=== PATIENT | male | born 1950 | race Caucasian/White ===

== ENCOUNTER 2022-04-10 06:26 | Inpatient (IN) ==
--- NOTE | 2022-04-08 11:37 | XRay Report ---
INDICATION: PRE-SURGERY TECHNIQUE: PA and lateral upright chest x-ray COMPARISON: Previous chest x-ray dated 01/19/2013 FINDINGS: Lungs: Lungs are negative. No focal pulmonary parenchymal infiltrate or mass Heart, vascular: No significant cardiomegaly. Pulmonary vascularity is normal. No pulmonary edema or pulmonary congestion Mediastinum, mima: No mediastinal widening. No hilar mass Pleura:No pleural fluid. No pleural-based mass or calcification Thoracic spine, ribs: No thoracic compression fracture. Ribs are negative. No fracture. No lytic lesion IMPRESSION: 1. Negative PA and lateral chest x-ray 2. No significant interval change Interpreted and Authenticated by: Lauro Davis 04/08/22
[2022-04-08 15:01] LABS: Basophils # (Auto) 0.08 K/mcL (0.00-0.30); Basophils % (Auto) 1.2 % (0.0-2.0); Eosinophils # (Auto) 0.32 K/mcL (0.00-0.70); Eosinophils % (Auto) 4.9 % (0.0-7.0); Hematocrit 40.3 % (40.1-51.0); Hemoglobin 13.3 g/dL (13.7-17.5); Lymphocytes # (Auto) 0.97 K/mcL (1.50-4.80); Lymphocytes % (Auto) 14.8 % (15.5-49.0); Mean Cell Volume 90.6 fL (80.0-100.0); Mean Platelet Volume 10.7 fL (7.4-10.4); Monocytes # (Auto) 0.42 K/mcL (0.10-0.90); Monocytes % (Auto) 6.4 % (1.0-12.0); Neutrophils % (Auto) 72.2 % (38.0-78.0); Platelet Count 194 K/mcL (140-440); RBC 4.45 M/mcL (4.63-6.08); Red Cell Distribution Width 12.6 % (11.5-14.5); WBC 6.5 K/mcL (4.5-11.0)
[2022-04-08 15:06] LABS: Partial Thromboplastin Time 29.7 sec (20.0-37.0); Prothrombin Time 13.6 sec (11.9-14.5)
[2022-04-08 15:34] LABS: ALT/SGPT 12 U/L (<40); AST/SGOT 16 U/L (<40); Albumin/Globulin Ratio 2.1 (1.0-2.3); Alkaline Phosphatase 97 U/L (39-117); Bilirubin,Total 0.4 mg/dL (0.1-1.0); Blood Urea Nitrogen 11 mg/dL (8-23); Calcium 8.8 mg/dL (8.6-10.4); Carbon Dioxide 27 mmol/L (22-30); Chloride 103 mmol/L (96-108); Globulin 1.9 gm/dL (2.2-3.7); Glomerular Filtration Rate 85; Glucose 84 mg/dL (70-105)
--- NOTE | 2022-04-09 13:31 | EKG ---
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
[~2022-04-10 06:26] MED LIST: CEFEPIME 2 GM VIAL IV SCH; IPRATROPIUM/ALBUTEROL 3 ML AMPUL.NEB NEB PRN; SCOPOLAMINE 1 PATCH PATCH TOPICAL PRN; metroNIDAZOLE 500 MG/100 ML BAG IV SCH
[2022-04-10] MEDS ORDERED: GLYCOPYRROLATE 0.2 MG/ML VIAL IV ONE (09:30)
[2022-04-10] MEDS ORDERED: MAGNESIUM SULFATE 2 GM/50 ML BAG IV ONE (09:30)
[2022-04-10] MEDS ORDERED: LIDOCAINE HCL/PF 100 MG/5 ML SYRINGE IV ONE (09:30)
[2022-04-10] MEDS ORDERED: HYDROmorphone 1 MG/ML SYRINGE ONE (09:30)
[2022-04-10] MEDS ORDERED: DEXAMETHASONE 10 MG/ML VIAL ONE (09:30)
[2022-04-10] MEDS ORDERED: ONDANSETRON 4 MG/2 ML VIAL ONE (09:30)
[2022-04-10] MEDS ORDERED: ePHEDrine 50 MG/5 ML SYRINGE (ANEST) IV ONE (09:30)
[2022-04-10] MEDS ORDERED: ROCURONIUM 10 MG/ML ML IV ONE (09:30)
[2022-04-10] MEDS ORDERED: fentaNYL 100 MCG/2 ML VIAL IV ONE (09:30)
[2022-04-10] MEDS ORDERED: PROPOFOL 200 MG/20 ML VIAL IV ONE (09:30)
[2022-04-10] MEDS ORDERED: KETAMINE 50 MG/ML Syringe (ANEST) IV ONE (09:30)
[2022-04-10] MEDS ORDERED: SUGAMMADEX SODIUM 200 MG/2 ML VIAL IV ONE (09:30)
[2022-04-10] MEDS ORDERED: diphenhydrAMINE 50 MG/ML VIAL IV PRN (11:18)
[2022-04-10] MEDS ORDERED: IPRATROPIUM/ALBUTEROL 3 ML AMPUL.NEB NEB PRN (11:18)
[2022-04-10] MEDS ORDERED: MEPERIDINE 25 MG/ML VIAL IV PRN (11:18)
[2022-04-10] MEDS ORDERED: HYDROmorphone 0.5 MG/0.5 ML SYRINGE IV PRN (11:18)
[2022-04-10] MEDS ORDERED: METHOCARBAMOL 1,000 MG/10 ML VIAL IV PRN (11:18)
[2022-04-10] MEDS ORDERED: NALOXONE HCL 0.4 MG/ML VIAL IV PRN (11:18)
[2022-04-10] MEDS ORDERED: ACETAMINOPHEN 1,000 MG/100 ML BAG IV ONE (11:18)
[2022-04-10] MEDS ORDERED: PROMETHAZINE 25 MG/ML VIAL IV PRN ×2 (11:18→14:30)
[2022-04-10] MEDS ORDERED: ONDANSETRON 4 MG/2 ML VIAL IV PRN ×2 (11:18→11:56)
[2022-04-10] MEDS ORDERED: LACTATED RINGERS 250 ML IV PRN (11:18)
[2022-04-10] MEDS ORDERED: LACTATED RINGERS 1,000 ML IV SCH (11:30)
--- NOTE | 2022-04-10 11:40 | Brief Operative Note ---
Brief Operative Note Date of procedure: 04/10/22 Pre-op diagnosis: ascending colon cancer Post-op diagnosis: other (ascending colon cancer) Procedure: right colectomy Grafts/Implants: No Anesthesia: GETA Findings: thickened scar if proximal ascending colon Complications: none Surgeon: Song Bullock Estimated blood loss (cc): 30 Specimens Removed/Pathology: other (right colon) Condition: stable Disposition: PACU
[2022-04-10] MEDS: fentaNYL 100 MCG/2 ML VIAL IV PRN ×4 (12:16→12:30)
[2022-04-10] MEDS: HYDROmorphone 1 MG/ML SYRINGE IV PRN ×3 (13:25→20:23)
[2022-04-10] MEDS: 0.9 % SODIUM CHLORIDE 1,000 ML IV SCH ×2 (13:26→20:27)
[2022-04-10] MEDS: 0.9 % SODIUM CHLORIDE 10 ML SYRINGE IV SCH ×2 (13:26→20:24)
[2022-04-10] MEDS ORDERED: BENZOCAINE 1 SPRAY BOTTLE TOPICAL PRN (15:54)
[2022-04-10] MEDS: CEFEPIME 1 GM VIAL IV SCH (17:44)
[2022-04-11] MEDS: HYDROmorphone 1 MG/ML SYRINGE IV PRN ×5 (01:16→20:22)
[2022-04-11] MEDS: CEFEPIME 1 GM VIAL IV SCH ×3 (01:16→16:47)
[2022-04-11] MEDS: ACETAMINOPHEN 1,000 MG/100 ML BAG IV SCH ×4 (01:54→23:38)
[2022-04-11] MEDS: 0.9 % SODIUM CHLORIDE 1,000 ML IV SCH ×3 (03:34→20:25)
[2022-04-11] MEDS: 0.9 % SODIUM CHLORIDE 10 ML SYRINGE IV SCH ×3 (05:29→20:21)
[2022-04-11 06:44] LABS: Basophils # (Auto) 0.01 K/mcL (0.00-0.30); Basophils % (Auto) 0.1 % (0.0-2.0); Eosinophils # (Auto) 0 K/mcL (0.00-0.70); Eosinophils % (Auto) 0 % (0.0-7.0); Hematocrit 36.3 % (40.1-51.0); Lymphocytes # (Auto) 0.59 K/mcL (1.50-4.80); Lymphocytes % (Auto) 6.5 % (15.5-49.0); Mean Cell Volume 90.1 fL (80.0-100.0); Mean Corpuscular HGB Conc 33.1 g/dL (31.0-36.0); Monocytes # (Auto) 0.84 K/mcL (0.10-0.90); Monocytes % (Auto) 9.3 % (1.0-12.0); Neutrophils % (Auto) 83.7 % (38.0-78.0); Platelet Count 174 K/mcL (140-440); RBC 4.03 M/mcL (4.63-6.08); Red Cell Distribution Width 12.6 % (11.5-14.5)
[2022-04-11 07:14] LABS: ALT/SGPT 15 U/L (<40); AST/SGOT 16 U/L (<40); Albumin 3.2 gm/dL (3.2-5.2); Albumin/Globulin Ratio 1.8 (1.0-2.3); Alkaline Phosphatase 75 U/L (39-117); Bilirubin,Direct 0.2 mg/dL (<0.3); Bilirubin,Total 0.8 mg/dL (0.1-1.0); Blood Urea Nitrogen 16 mg/dL (8-23); Calcium 7.6 mg/dL (8.6-10.4); Carbon Dioxide 25 mmol/L (22-30); Chloride 106 mmol/L (96-108); Globulin 1.8 gm/dL (2.2-3.7); Glomerular Filtration Rate 75; Glucose 105 mg/dL (70-105); Lactate Dehydrogenase 161 U/L (135-225); Phosphorous 2.9 mg/dL (2.5-4.5); Triglycerides 50 mg/dL (<150); Uric Acid 4.9 mg/dL (2.5-8.0)
--- NOTE | 2022-04-11 17:47 | General Surgery Progress Note ---
SUBJECTIVE Subjective Patient information: Note initiated : 04/11/22 at 5:44 pm Service Date, if different from initiated Date: [] Patient: Ubaldo Oliveira 71 y/o M admitted on 04/10/22 for Right Colectomy. Chief Complaint: [] Interval history: Patient has done well on the first postoperative day. His pain is controlled. He denies nausea. White blood count 9, hemoglobin 12, hematocrit 36.3. CHEM panel normal Constitutional Vitals: Vital Signs Temp Pulse Resp BP Pulse Ox O2 Del Method O2 Flow Rate 97.6 F 67 18 183/97 90 2 04/11/22 15:54 04/11/22 15:54 04/11/22 15:54 04/11/22 15:54 04/11/22 15:54 04/11/22 15:54 04/11/22 08:00 Period Temp Pulse Resp BP Sys/Cueva Pulse Ox O2 Del Method O2 Flow Rate Last 24 Hr 97.6 F-100.2 F 61-79 16-20 122-183/78-97 90-94 Nasal Cannula- Room Air 2-2 Intake and Output 04/11/22 04/11/22 04/11/22 05:59 13:59 21:59 Intake Total 1040 1100 250 Output Total 1500 650 Balance -460 1100 -400 Weight 222 lb 1.6 oz Patient Weight 04/12/22 05:59 Weight 222 lb 1.6 oz Intake & Output: Intake & Output 04/11/22 04/11/22 04/11/22 05:59 13:59 21:59 Intake Total 1040 1100 250 Output Total 1500 650 Balance -460 1100 -400 Weight 222 lb 1.6 oz Intake: IV 990 1100 100 Sodium Chloride 0.9% 1,000 ml @ 890 1000 125 mls/hr IV .Q8H [facility] Rx#: [id number] Oral 50 150 Tube Feeding 0 Output: Gastric Drainage 400 650 Right Nare NG/OG 400 650 Urine Catheter Amount 1100 Other: Meal Popsicle Percent of Meal Consumed 100% Feeding Ability Independent Urine Appearance Clear Uretheral (Stubbs) Clear Urine Color Yellow Uretheral (Stubbs) Bright Yellow Eye Eye exam: Present EOMI and PERRL ENT ENT exam: Present mucous membranes moist and normal oropharynx Neck Neck exam: Present full ROM and normal inspection; Absent tenderness Respiratory Respiratory exam: Present normal respiratory exam and CTAB; Absent rales or rhonchi Cardiovascular Cardiovascular exam: Present normal rate and rhythm, RRR, +S1 and +S2; Absent JVD GI/Abdominal GI/Abdominal exam: Present normal bowel sounds and soft; Absent distended Extremities Exam Extremities exam: Present full ROM and neurovascular intact Neurological Exam Neurological exam: Present alert and oriented X3; Absent motor sensory deficit Psychiatric Psychiatric exam: Present normal affect and normal mood A/P Assessment and plan (1) Malignant neoplasm of right colon: Status: Acute Plan Patient has normal postoperative course Will continue present movement Time Spent With Patient Time: Total time spent is greater than 50% in coordination of care (as documented) at patient's floor/unit and/or counseling patient:
[2022-04-11] MEDS: hydrALAZINE 20 MG/ML VIAL IV PRN (20:21)
[2022-04-11] MEDS ORDERED: hydrALAZINE 20 MG/ML VIAL ONE (20:29)
[2022-04-12] MEDS: CEFEPIME 1 GM VIAL IV SCH ×3 (00:29→17:24)
[2022-04-12] MEDS: hydrALAZINE 20 MG/ML VIAL IV PRN ×2 (02:30→17:22)
[2022-04-12] MEDS: HYDROmorphone 1 MG/ML SYRINGE IV PRN ×2 (03:21→20:27)
[2022-04-12] MEDS: 0.9 % SODIUM CHLORIDE 1,000 ML IV SCH ×3 (03:21→20:32)
[2022-04-12] MEDS: ACETAMINOPHEN 1,000 MG/100 ML BAG IV SCH ×3 (05:27→17:44)
[2022-04-12] MEDS: 0.9 % SODIUM CHLORIDE 10 ML SYRINGE IV SCH ×2 (05:29→14:36)
[2022-04-12 06:30] LABS: Basophils # (Auto) 0.03 K/mcL (0.00-0.30); Basophils % (Auto) 0.4 % (0.0-2.0); Eosinophils # (Auto) 0.09 K/mcL (0.00-0.70); Eosinophils % (Auto) 1.1 % (0.0-7.0); Hematocrit 36.9 % (40.1-51.0); Hemoglobin 12.3 g/dL (13.7-17.5); Lymphocytes # (Auto) 0.37 K/mcL (1.50-4.80); Lymphocytes % (Auto) 4.7 % (15.5-49.0); Mean Cell Volume 89.8 fL (80.0-100.0); Mean Corpuscular HGB Conc 33.3 g/dL (31.0-36.0); Mean Platelet Volume 10.3 fL (7.4-10.4); Monocytes # (Auto) 0.55 K/mcL (0.10-0.90); Neutrophils % (Auto) 86.7 % (38.0-78.0); Platelet Count 151 K/mcL (140-440); RBC 4.11 M/mcL (4.63-6.08); Red Cell Distribution Width 12.4 % (11.5-14.5); WBC 7.9 K/mcL (4.5-11.0)
[2022-04-12 06:53] LABS: ALT/SGPT 13 U/L (<40); AST/SGOT 15 U/L (<40); Albumin 3.3 gm/dL (3.2-5.2); Albumin/Globulin Ratio 1.5 (1.0-2.3); Alkaline Phosphatase 88 U/L (39-117); Bilirubin,Direct 0.2 mg/dL (<0.3); Bilirubin,Total 0.9 mg/dL (0.1-1.0); Blood Urea Nitrogen 10 mg/dL (8-23); Calcium 7.8 mg/dL (8.6-10.4); Carbon Dioxide 25 mmol/L (22-30); Chloride 105 mmol/L (96-108); Globulin 2.2 gm/dL (2.2-3.7); Glomerular Filtration Rate 94; Glucose 94 mg/dL (70-105); Lactate Dehydrogenase 186 U/L (135-225); Phosphorous 1.4 mg/dL (2.5-4.5); Triglycerides 70 mg/dL (<150); Uric Acid 4.3 mg/dL (2.5-8.0)
--- NOTE | 2022-04-12 15:42 | General Surgery Progress Note ---
SUBJECTIVE Subjective Patient information: Note initiated : 04/12/22 at 3:37 pm Service Date, if different from initiated Date: [] Patient: Ubaldo Oliveira 71 y/o M admitted on 04/10/22 for Right Colectomy. Chief Complaint: [] Principal diagnosis: Right colectomy Interval history: Patient is doing well. He has had some flatus but has not had a bowel movement. He denies nausea. Urine output is excellent. Discussed with him the plan to clamp his nasogastric tube and place him on clear liquids. Stubbs catheter is ready for being discontinued. Constitutional Vitals: Vital Signs Temp Pulse Resp BP Pulse Ox O2 Del Method O2 Flow Rate 98.1 F 80 18 162/106 94 2 04/12/22 11:42 04/12/22 11:42 04/12/22 11:42 04/12/22 11:42 04/12/22 11:42 04/12/22 11:42 04/11/22 08:00 Period Temp Pulse Resp BP Sys/Cueva Pulse Ox O2 Del Method O2 Flow Rate Last 24 Hr 97.6 F-98.7 F 67-82 16-20 155-183/85-106 90-95 Room Air-Room Air Intake and Output 04/12/22 04/12/22 04/12/22 05:59 13:59 21:59 Intake Total 1067 1200 Output Total 2400 Balance -1333 1200 Intake & Output: Intake & Output 04/12/22 04/12/22 04/12/22 05:59 13:59 21:59 Intake Total 1067 1200 Output Total 2400 Balance -1333 1200 Intake: IV 967 1200 Sodium Chloride 0.9% 1,000 ml @ 867 1000 125 mls/hr IV .Q8H [facility] Rx#: [id number] Oral 100 Tube Feeding 0 Output: Gastric Drainage 275 Right Nare NG/OG 275 Urine Catheter Amount 2125 Other: Urine Appearance Clear Uretheral (Stubbs) Clear Urine Color Light Melina Uretheral (Stubbs) Yellow ENT ENT exam: Present mucous membranes moist and normal oropharynx Neck Neck exam: Present full ROM; Absent tenderness Respiratory Respiratory exam: Present normal respiratory exam; Absent CTAB, rales or respiratory distress Cardiovascular Cardiovascular exam: Present normal rate and rhythm, +S1 and +S2; Absent RRR GI/Abdominal GI/Abdominal exam: Present normal bowel sounds, distended (Mild distention) and tenderness (Minimal tenderness) Extremities Exam Extremities exam: Present full ROM, normal inspection and neurovascular intact; Absent tenderness Neurological Exam Neurological exam: Present alert, oriented X3 and reflexes normal; Absent altered or motor sensory deficit Psychiatric Psychiatric exam: Present normal affect and normal mood A/P Assessment and plan (1) Malignant neoplasm of right colon: Status: Acute (2) Chronic post-traumatic stress disorder: Status: Chronic Plan Patient is doing well. He has some flatus but has not had nausea or bowel movement. His pain is well controlled. He complains of anxiety but he is off of his antianxiety medication. Nasogastric tube is clamped. Time Spent With Patient Time: Total time spent is greater than 50% in coordination of care (as documented) at patient's floor/unit and/or counseling patient:
[2022-04-12] MEDS: ALPRAZolam 0.5 MG TABLET PO PRN (17:35)
[2022-04-13] MEDS: 0.9 % SODIUM CHLORIDE 10 ML SYRINGE IV SCH ×4 (00:24→23:57)
[2022-04-13] MEDS: ACETAMINOPHEN 1,000 MG/100 ML BAG IV SCH ×5 (00:29→23:57)
[2022-04-13] MEDS: CEFEPIME 1 GM VIAL IV SCH ×4 (00:29→23:57)
[2022-04-13] MEDS: 0.9 % SODIUM CHLORIDE 1,000 ML IV SCH ×3 (00:33→11:46)
[2022-04-13] MEDS: hydrALAZINE 20 MG/ML VIAL IV PRN ×2 (05:25→17:57)
[2022-04-13 06:48] LABS: Basophils # (Auto) 0.04 K/mcL (0.00-0.30); Basophils % (Auto) 0.7 % (0.0-2.0); Eosinophils # (Auto) 0.33 K/mcL (0.00-0.70); Eosinophils % (Auto) 5.5 % (0.0-7.0); Hematocrit 34.7 % (40.1-51.0); Hemoglobin 12.5 g/dL (13.7-17.5); Lymphocytes # (Auto) 0.45 K/mcL (1.50-4.80); Lymphocytes % (Auto) 7.5 % (15.5-49.0); Mean Cell Volume 89.2 fL (80.0-100.0); Mean Platelet Volume 10.3 fL (7.4-10.4); Monocytes # (Auto) 0.45 K/mcL (0.10-0.90); Monocytes % (Auto) 7.5 % (1.0-12.0); Neutrophils % (Auto) 78.5 % (38.0-78.0); Platelet Count 142 K/mcL (140-440); RBC 3.89 M/mcL (4.63-6.08); Red Cell Distribution Width 12.2 % (11.5-14.5)
[2022-04-13 07:23] LABS: ALT/SGPT 11 U/L (<40); AST/SGOT 13 U/L (<40); Albumin/Globulin Ratio 1.3 (1.0-2.3); Alkaline Phosphatase 69 U/L (39-117); Bilirubin,Direct 0.2 mg/dL (<0.3); Bilirubin,Total 0.8 mg/dL (0.1-1.0); Blood Urea Nitrogen 7 mg/dL (8-23); Calcium 8.2 mg/dL (8.6-10.4); Carbon Dioxide 22 mmol/L (22-30); Chloride 107 mmol/L (96-108); Globulin 2.3 gm/dL (2.2-3.7); Glomerular Filtration Rate 100; Glucose 86 mg/dL (70-105); Lactate Dehydrogenase 173 U/L (135-225); Phosphorous 1.8 mg/dL (2.5-4.5); Triglycerides 72 mg/dL (<150)
[2022-04-13] MEDS: HYDROmorphone 1 MG/ML SYRINGE IV PRN (13:04)
--- NOTE | 2022-04-13 14:59 | General Surgery Progress Note ---
SUBJECTIVE Subjective Patient information: Note initiated : 04/13/22 at 2:59 pm Service Date, if different from initiated Date: [] Patient: Ubaldo Oliveira 71 y/o M admitted on 04/10/22 for Right Colectomy. Chief Complaint: [] Principal diagnosis: Right colectomy Interval history: Patient continues to improve. He has flatus but has not had a bowel movement. He is tolerating his diet without difficulty. He denies nausea or vomiting. CBC and BMP are normal. Constitutional Vitals: Vital Signs Temp Pulse Resp BP Pulse Ox O2 Del Method O2 Flow Rate 98.5 F 100 H 18 147/95 95 2 04/13/22 12:00 04/13/22 12:00 04/13/22 12:00 04/13/22 12:00 04/13/22 12:00 04/13/22 12:00 04/11/22 08:00 Period Temp Pulse Resp BP Sys/Cueva Pulse Ox O2 Del Method O2 Flow Rate Last 24 Hr 98.5 F-100.0 F 69-100 16-18 147-185/95-106 94-98 Room Air-Room Air Intake and Output 04/13/22 04/13/22 04/13/22 05:59 13:59 21:59 Intake Total 200 1100 Output Total 600 Balance -400 1100 Intake & Output: Intake & Output 04/13/22 04/13/22 04/13/22 05:59 13:59 21:59 Intake Total 200 1100 Output Total 600 Balance -400 1100 Intake: IV 200 1100 Sodium Chloride 0.9% 1,000 ml @ 1000 125 mls/hr IV .Q8H [facility] Rx#: [id number] Tube Feeding 0 Output: Void Amount 600 Other: # Voids 1 Eye Eye exam: Present EOMI and PERRL ENT ENT exam: Present mucous membranes moist, normal exam and normal oropharynx Neck Neck exam: Present full ROM and normal inspection; Absent tenderness Respiratory Respiratory exam: Present normal respiratory exam and CTAB; Absent rales, rhonchi or wheezes Cardiovascular Cardiovascular exam: Present normal rate and rhythm, RRR, +S1 and +S2; Absent JVD GI/Abdominal GI/Abdominal exam: Present normal bowel sounds and soft; Absent distended Extremities Exam Extremities exam: Present full ROM, normal inspection and neurovascular intact; Absent pedal edema Neurological Exam Neurological exam: Present alert, oriented X3 and reflexes normal Psychiatric Psychiatric exam: Present anxious, normal affect and normal mood A/P Assessment and plan (1) Malignant neoplasm of right colon: Status: Acute (2) Chronic post-traumatic stress disorder: Status: Chronic (3) Neoplasm of meninges: Status: Chronic (4) GERD (gastroesophageal reflux disease): Status: Chronic Plan Patient is doing well. We will increase activity and will advance diet as tolerated Time Spent With Patient Time: Total time spent is greater than 50% in coordination of care (as documented) at patient's floor/unit and/or counseling patient:
[2022-04-14] MEDS: hydrALAZINE 20 MG/ML VIAL IV PRN ×2 (00:17→08:02)
[2022-04-14] MEDS: ALPRAZolam 0.5 MG TABLET PO PRN (00:17)
[2022-04-14] MEDS: 0.9 % SODIUM CHLORIDE 10 ML SYRINGE IV SCH ×2 (05:33→13:22)
[2022-04-14] MEDS: ACETAMINOPHEN 1,000 MG/100 ML BAG IV SCH ×3 (05:33→17:00)
[2022-04-14 06:18] LABS: Basophils # (Auto) 0.07 K/mcL (0.00-0.30); Basophils % (Auto) 1.1 % (0.0-2.0); Eosinophils # (Auto) 0.54 K/mcL (0.00-0.70); Eosinophils % (Auto) 8.7 % (0.0-7.0); Hematocrit 36.6 % (40.1-51.0); Hemoglobin 12.6 g/dL (13.7-17.5); Lymphocytes # (Auto) 0.66 K/mcL (1.50-4.80); Lymphocytes % (Auto) 10.7 % (15.5-49.0); Mean Cell Volume 88.2 fL (80.0-100.0); Mean Corpuscular HGB Conc 34.4 g/dL (31.0-36.0); Mean Platelet Volume 10.1 fL (7.4-10.4); Monocytes % (Auto) 8.1 % (1.0-12.0); Neutrophils % (Auto) 71.1 % (38.0-78.0); Platelet Count 195 K/mcL (140-440); RBC 4.15 M/mcL (4.63-6.08); Red Cell Distribution Width 12.3 % (11.5-14.5); WBC 6.2 K/mcL (4.5-11.0)
[2022-04-14 06:42] LABS: ALT/SGPT 13 U/L (<40); AST/SGOT 14 U/L (<40); Albumin 3.3 gm/dL (3.2-5.2); Albumin/Globulin Ratio 1.4 (1.0-2.3); Alkaline Phosphatase 76 U/L (39-117); Bilirubin,Direct < 0.2 mg/dL (0-0.3); Bilirubin,Total 0.7 mg/dL (0.1-1.0); Blood Urea Nitrogen 6 mg/dL (8-23); Calcium 8.5 mg/dL (8.6-10.4); Carbon Dioxide 22 mmol/L (22-30); Chloride 107 mmol/L (96-108); Globulin 2.3 gm/dL (2.2-3.7); Glomerular Filtration Rate 94; Glucose 104 mg/dL (70-105); Lactate Dehydrogenase 173 U/L (135-225); Phosphorous 2.8 mg/dL (2.5-4.5); Triglycerides 88 mg/dL (<150); Uric Acid 3.4 mg/dL (2.5-8.0)
[2022-04-14] MEDS: CEFEPIME 1 GM VIAL IV SCH ×2 (08:06→16:56)
[2022-04-14] MEDS: LOSARTAN 50 MG TABLET PO SCH (14:00)
[2022-04-14] MEDS: POLYETHYLENE GLYCOL 3350 17 GM PACKET PO SCH ×2 (14:01→21:05)
[2022-04-14] MEDS: HYDROCHLOROTHIAZIDE 25 MG TABLET PO SCH (14:01)
--- NOTE | 2022-04-14 14:43 | General Surgery Progress Note ---
SUBJECTIVE Subjective Patient information: Note initiated : 04/14/22 at 2:38 pm Service Date, if different from initiated Date: [] Patient: Ubaldo Oliveira 71 y/o M admitted on 04/10/22 for Right Colectomy. Chief Complaint: [] Principal diagnosis: Right colectomy Interval history: Patient continues to do well. He is afebrile. He has had flatus and had a small bowel movement earlier today. He does have some abdominal distention. White blood count 6.2, hemoglobin 12.6, hematocrit 36.6, potassium 3.2, BUN 6, creatinine 0.7. Constitutional Vitals: Vital Signs Temp Pulse Resp BP Pulse Ox O2 Del Method O2 Flow Rate 98.3 F 82 18 143/92 96 2 04/14/22 12:07 04/14/22 12:07 04/14/22 12:07 04/14/22 12:07 04/14/22 12:07 04/14/22 12:07 04/11/22 08:00 Period Temp Pulse Resp BP Sys/Cueva Pulse Ox O2 Del Method O2 Flow Rate Last 24 Hr 98.1 F-98.7 F 66-88 16-18 143-192/88-115 94-96 Room Air-Room Air Intake and Output 04/14/22 04/14/22 04/14/22 05:59 13:59 21:59 Intake Total 220 904 Balance 220 904 Intake & Output: Intake & Output 04/14/22 04/14/22 04/14/22 05:59 13:59 21:59 Intake Total 220 904 Balance 220 904 Intake: IV 100 200 Oral 120 704 Other: Meal Breakfast Percent of Meal Consumed 25% Feeding Ability Independent Stool Size Small Stool Color Brown Stool Consistency Loose # Voids 4 1 # Bowel Movements 1 ENT ENT exam: Present normal exam and normal oropharynx Neck Neck exam: Present full ROM; Absent tenderness Respiratory Respiratory exam: Present normal respiratory exam; Absent CTAB Cardiovascular Cardiovascular exam: Present normal rate and rhythm, RRR, +S1 and +S2; Absent JVD GI/Abdominal GI/Abdominal exam: Present normal bowel sounds (Normal slightly hypoactive bowel sounds); Absent distended, guarding or tenderness Extremities Exam Extremities exam: Present normal inspection and neurovascular intact Neurological Exam Neurological exam: Present normal gait and oriented X3; Absent motor sensory deficit Psychiatric Psychiatric exam: Present normal affect and normal mood; Absent anxious A/P Assessment and plan (1) Malignant neoplasm of right colon: Status: Acute (2) Diplopia: Status: Acute (3) Brain tumor: Status: Chronic (4) Neoplasm of meninges: Status: Chronic (5) Chronic post-traumatic stress disorder: Status: Chronic (6) Hypertension: Status: Chronic Plan Patient is clinically stable The diplopia is related to his longstanding unresectable meningioma Diet is advanced to GI soft KCl 40 mEq twice daily 2 view abdominal x-ray in the morning Probable discharge home tomorrow Start oral antihypertensives Time Spent With Patient Time: Total time spent is greater than 50% in coordination of care (as documented) at patient's floor/unit and/or counseling patient:
[2022-04-14] MEDS: POTASSIUM CHLORIDE 20 MEQ TABLET PO SCH (16:55)
[2022-04-14] MEDS ORDERED: SERTRALINE 50 MG TABLET PO SCH (21:00)
[2022-04-15] MEDS: ACETAMINOPHEN 1,000 MG/100 ML BAG IV SCH ×3 (00:20→11:09)
[2022-04-15] MEDS: 0.9 % SODIUM CHLORIDE 10 ML SYRINGE IV SCH ×2 (00:20→06:19)
[2022-04-15] MEDS: CEFEPIME 1 GM VIAL IV SCH ×2 (00:20→09:49)
[2022-04-15] MEDS: hydrALAZINE 20 MG/ML VIAL IV PRN (00:38)
[2022-04-15 06:11] LABS: Basophils # (Auto) 0.07 K/mcL (0.00-0.30); Basophils % (Auto) 1.3 % (0.0-2.0); Eosinophils # (Auto) 0.58 K/mcL (0.00-0.70); Eosinophils % (Auto) 10.5 % (0.0-7.0); Hemoglobin 12.4 g/dL (13.7-17.5); Lymphocytes # (Auto) 0.61 K/mcL (1.50-4.80); Mean Cell Volume 88.5 fL (80.0-100.0); Mean Corpuscular HGB Conc 34.4 g/dL (31.0-36.0); Monocytes # (Auto) 0.41 K/mcL (0.10-0.90); Monocytes % (Auto) 7.4 % (1.0-12.0); Neutrophils % (Auto) 69.3 % (38.0-78.0); Platelet Count 195 K/mcL (140-440); RBC 4.07 M/mcL (4.63-6.08); Red Cell Distribution Width 12.3 % (11.5-14.5); WBC 5.5 K/mcL (4.5-11.0)
[2022-04-15 06:24] LABS: ALT/SGPT 15 U/L (<40); AST/SGOT 15 U/L (<40); Albumin 3.4 gm/dL (3.2-5.2); Albumin/Globulin Ratio 1.5 (1.0-2.3); Alkaline Phosphatase 77 U/L (39-117); Bilirubin,Direct < 0.2 mg/dL (0-0.3); Bilirubin,Total 0.6 mg/dL (0.1-1.0); Blood Urea Nitrogen 6 mg/dL (8-23); Calcium 8.6 mg/dL (8.6-10.4); Carbon Dioxide 24 mmol/L (22-30); Chloride 104 mmol/L (96-108); Globulin 2.2 gm/dL (2.2-3.7); Glomerular Filtration Rate 94; Glucose 104 mg/dL (70-105); Lactate Dehydrogenase 168 U/L (135-225); Phosphorous 3.1 mg/dL (2.5-4.5); Triglycerides 93 mg/dL (<150)
--- NOTE | 2022-04-15 07:38 | XRay Report ---
INDICATION: Follow-up of ileus TECHNIQUE: Supine and upright abdomen. COMPARISON: Previous CT scan dated 01/19/2013 FINDINGS:Skin gaurav in a vertical midline incision. There is gas within the colon. There is no dilatation or focal abnormality. There is mild small bowel gas without significant dilatation. Bowel gas pattern is unremarkable and nonobstructive. No biliary or portal venous gas. No pneumoperitoneum. IMPRESSION: Nonspecific and nonobstructive bowel gas pattern Interpreted and Authenticated by: Lauro Davis 04/15/22
[2022-04-15] MEDS: POTASSIUM CHLORIDE 20 MEQ TABLET PO SCH (07:46)
[2022-04-15] MEDS ORDERED: TAMSULOSIN 0.4 MG CAPSULE PO SCH (09:00)
[2022-04-15] MEDS: LOSARTAN 50 MG TABLET PO SCH (09:39)
[2022-04-15] MEDS: HYDROCHLOROTHIAZIDE 25 MG TABLET PO SCH (09:39)
[2022-04-15] MEDS: POLYETHYLENE GLYCOL 3350 17 GM PACKET PO SCH (09:41)
--- NOTE | 2022-04-15 13:17 | Discharge Summary ---
Discharge Provider Provider IMPORTANT FOLLOW-UP INFORMATION FOR PCP: Patient information: Note initiated : 04/15/22 at 1:11 pm Service Date, if different from initiated Date: [] Patient: Ubaldo Oliveira 71 y/o M admitted on 04/10/22 for Right Colectomy. Chief Complaint: [] Date of admission: 04/10/22 06:26 Discharge date: 04/15/22 Primary care physician: Verito Bullock Admitting clinician: Song Bullock Attending physician on admission: Song Bullock Attending physician on discharge: Song Bullock Discharging clinician: Song Bullock COURSE Hospital Course Hospital course: 71-year-old male with history of adenocarcinoma arising from a large polypoid lesion in the ascending colon. Pathology revealed extension of the tumor to the margin of resection. Patient underwent right colectomy. In the area of resection there was scarring but no clinical evidence of residual disease. He has done well post operatively and is stable for discharge home. Discharge diagnosis: Adenocarcinoma right colon Secondary discharge diagnosis: Hypertension Cranial meningioma GERD Posttraumatic stress disorder Reason for admission: Postoperative status Procedures: Right colectomy Pertinent studies/significant findings: None Time Spent with Patient Time attestation: Total time spent providing and/or coordinating discharge services: Time spent: Less than 30 minutes Physical Examination Vital Signs Vital signs: Temp Pulse Resp BP Pulse Ox O2 Del Method O2 Flow Rate 98.7 F 74 16 157/97 96 2 04/15/22 11:52 04/15/22 11:52 04/15/22 11:52 04/15/22 11:52 04/15/22 11:52 04/15/22 11:52 04/11/22 08:00 Eyes Eye exam: PERRL and normal ocular movement ENT ENT exam: normal pinna, normal nares, normal mucosa and decreased hearing Head Head exam IM: Present atraumatic, normal inspection and normocephalic Neck Neck exam: no masses, no bruits, trachea midline, no lymphadenopathy and no venous distension Cardiovascular Cardiovascular exam IM: Present normal rate and rhythm, RRR, +S1 and +S2; Absent JVD Respiratory Respiratory exam: normal expansion, normal respiratory effort and clear to auscultation Abdomen Abdomen: Present soft, tender (Mild incisional tenderness) and bowel sounds (Normal bowel sounds) Integumentary Integumentary: Present no rash, no growths and no abnormal pigmentation Neurologic Neurologic: Present normal coordination and normal sensation Musculoskeletal Musculoskeletal: Present normal gait and normal posture Psychiatric Psychiatric: Present oriented to time, oriented to person, oriented to place, speech is normal and memory intact Discharge Plan Patient/Caregiver Discharge Instructions Activity: increase activity as tolerated Diet: Regular Diet Prescriptions: New oxycodone-acetaminophen [Endocet] 10-325 mg tablet 1 tab PO Q4H PRN (Reason: Pain) Qty: 20 0RF Continued peg 3350-electrolytes [Golytely] 236-22.74-6.74 -5.86 gram recon soln 240 ml PO Q10M Qty: 4000 0RF hydrochlorothiazide 25 mg tablet 12.5 mg PO QDAY ferrous sulfate 325 mg (65 mg iron) tablet 325 mg PO QDAY telmisartan 40 mg tablet 40 mg PO BID acetaminophen 325 mg capsule 650 mg PO TID PRN (Reason: Pain) aspirin 81 mg Capsule 81 mg PO QDAY tamsulosin 0.4 mg Capsule 0.4 mg PO QDAY omeprazole 20 mg Capsule,Delayed Release(Dr/Ec) 20 mg PO QDAY sertraline 25 mg Tablet 25 mg PO QHS Follow Up Plan Follow up with: Song Bullock MD [Physician] - Patient Disposition: Home, Self-Care Prognosis: Good Rehab Potential: Good I certify that the patient requires SNF services: No Overall status at discharge: patient is progressing back to baseline Discharge Orders: Discharge Order (Routine); Ordered 04/15/22 Ordered By: Song Bullock Pending Pending Pending: Resuscitation Status Resuscitate (Full Code) Diet GI Soft/Transitional Start [place] Apr 14 1352 Alprazolam (Alprazolam 0.5 Mg Tablet) 1 mg PO BIDP PRN PRN Reason: Anxiety Last Admin: 04/14/22 00:17 Dose: 0.5 mg Documented By: Admin: 04/12/22 17:35 Dose: 0.5 mg Documented By: NAB1 Benzocaine (Benzocaine 1 [place] Bottle) 1 spray TOPICAL ONCE PRN PRN Reason: Sore Throat Last Admin: 04/10/22 17:37 Dose: 1 spray Documented By: CHALINO Cefepime HCl (Cefepime 1 Gm Vial) 1 gm IV Q8H ANA; Protocol Last Admin: 04/15/22 09:49 Dose: 1 gm Documented By: Admin: 04/15/22 00:20 Dose: 1 gm Documented By: Admin: 04/14/22 16:56 Dose: 1 gm Documented By: Admin: 04/14/22 08:06 Dose: 1 gm Documented By: Admin: 04/13/22 23:57 Dose: 1 gm Documented By: Admin: 04/13/22 20:35 Dose: Not Given Documented By: Admin: 04/13/22 07:51 Dose: 1 gm Documented By: Admin: 04/13/22 00:29 Dose: 1 gm Documented By: Admin: 04/12/22 17:24 Dose: 1 gm Documented By: Admin: 04/12/22 09:42 Dose: 1 gm Documented By: Admin: 04/12/22 00:29 Dose: 1 gm Documented By: Admin: 04/11/22 16:47 Dose: 1 gm Documented By: Admin: 04/11/22 08:32 Dose: 1 gm Documented By: Admin: 04/11/22 01:16 Dose: 1 gm Documented By: Admin: 04/10/22 17:44 Dose: 1 gm Documented By: CHALINO Hydralazine HCl (Hydralazine 20 Mg/Ml Vial) 10 mg IV Q6HP PRN PRN Reason: Hypertension Last Admin: 04/15/22 00:38 Dose: 10 mg Documented By: Admin: 04/14/22 08:02 Dose: 10 mg Documented By: Admin: 04/14/22 00:17 Dose: 10 mg Documented By: Admin: 04/13/22 17:57 Dose: 10 mg Documented By: Admin: 04/13/22 05:25 Dose: 10 mg Documented By: Admin: 04/12/22 17:22 Dose: 10 mg Documented By: Admin: 04/12/22 02:30 Dose: 10 mg Documented By: Admin: 04/11/22 20:21 Dose: 10 mg Documented By: MERVAT Hydrochlorothiazide (Hydrochlorothiazide 25 Mg Tablet) 25 mg PO DAILY [facility] Last Admin: 04/15/22 09:39 Dose: 25 mg Documented By: Admin: 04/14/22 14:01 Dose: 25 mg Documented By: VIVIAN Hydromorphone HCl (Hydromorphone 1 Mg/Ml Syringe) 0 mg IV Q2HP PRN; Protocol PRN Reason: Per Pain Protocol Last Admin: 04/13/22 13:04 Dose: 1 mg Documented By: Admin: 04/12/22 20:27 Dose: 1 mg Documented By: Admin: 04/12/22 03:21 Dose: 1 mg Documented By: Admin: 04/11/22 20:22 Dose: 1 mg Documented By: Admin: 04/11/22 14:16 Dose: 1 mg Documented By: Admin: 04/11/22 11:15 Dose: 1 mg Documented By: Admin: 04/11/22 06:59 Dose: 1 mg Documented By: Admin: 04/11/22 01:16 Dose: 1 mg Documented By: Admin: 04/10/22 20:23 Dose: 1 mg Documented By: Admin: 04/10/22 17:38 Dose: 1 mg Documented By: Admin: 04/10/22 13:25 Dose: 1 mg Documented By: CHALINO Acetaminophen ([facility]) 1,000 mg in 100 mls @ 200 mls/hr IV Q6 ANA; Protocol Last Infusion: 04/15/22 11:39 Dose: 0 mls/hr Documented By: Admin: 04/15/22 11:09 Dose: 200 mls/hr Documented By: Infusion: 04/15/22 06:48 Dose: 0 mls/hr Documented By: Admin: 04/15/22 06:18 Dose: 200 mls/hr Documented By: Infusion: 04/15/22 00:50 Dose: 200 mls/hr Documented By: Admin: 04/15/22 00:20 Dose: 200 mls/hr Documented By: Infusion: 04/14/22 17:35 Dose: 0 mls/hr Documented By: Admin: 04/14/22 17:00 Dose: 200 mls/hr Documented By: Infusion: 04/14/22 13:16 Dose: 0 mls/hr Documented By: Admin: 04/14/22 12:39 Dose: 200 mls/hr Documented By: Infusion: 04/14/22 06:06 Dose: 0 mls/hr Documented By: Admin: 04/14/22 05:33 Dose: 200 mls/hr Documented By: Infusion: 04/14/22 00:38 Dose: 0 mls/hr Documented By: Admin: 04/13/22 23:57 Dose: 200 mls/hr Documented By: Admin: 04/13/22 20:35 Dose: Not Given Documented By: Infusion: 04/13/22 13:00 Dose: 0 mls/hr Documented By: Admin: 04/13/22 11:42 Dose: 200 mls/hr Documented By: Infusion: 04/13/22 05:45 Dose: 0 mls/hr Documented By: Admin: 04/13/22 05:13 Dose: 200 mls/hr Documented By: Infusion: 04/13/22 01:23 Dose: 0 mls/hr Documented By: Admin: 04/13/22 00:29 Dose: 200 mls/hr Documented By: Infusion: 04/12/22 18:14 Dose: 200 mls/hr Documented By: Admin: 04/12/22 17:44 Dose: 200 mls/hr Documented By: [email or web address] Infusion: 04/12/22 12:15 Dose: 0 mls/hr Documented By: [email or web address] Admin: 04/12/22 11:36 Dose: 200 mls/hr Documented By: [email or web address] Infusion: 04/12/22 06:15 Dose: 0 mls/hr Documented By: Admin: 04/12/22 05:27 Dose: 200 mls/hr Documented By: Infusion: 04/12/22 00:10 Dose: 0 mls/hr Documented By: Admin: 04/11/22 23:38 Dose: 200 mls/hr Documented By: MELITONUVRaman Losartan Potassium (Losartan 50 Mg Tablet) 50 mg PO DAILY ANA [facility] Admin: 04/15/22 09:39 Dose: 50 mg Documented By: Admin: 04/14/22 14:00 Dose: 50 mg Documented By: VIVIAN Polyethylene Glycol (Polyethylene Glycol 3350 17 Gm Packet) 17 gm PO BID [facility] Admin: 04/15/22 09:41 Dose: Not Given Documented By: Admin: 04/14/22 21:05 Dose: Not Given Documented By: Admin: 04/14/22 14:01 Dose: 17 gm Documented By: VIVIAN Potassium Chloride (Potassium Chloride 20 Meq Tablet) 40 meq PO BIDCC [facility] Admin: 04/15/22 07:46 Dose: 40 meq Documented By: Admin: 04/14/22 16:55 Dose: 40 meq Documented By: VIVIAN Sertraline HCl (Sertraline 50 Mg Tablet) 25 mg PO QHS [facility] Admin: 04/14/22 21:02 Dose: 25 mg Documented By: KERWIN Sodium Chloride (0.9 % Sodium Chloride 10 Ml Syringe) 10 ml IV Q8 [facility] Admin: 04/15/22 06:19 Dose: 10 ml Documented By: Admin: 04/15/22 00:20 Dose: 10 ml Documented By: Admin: 04/14/22 13:22 Dose: 10 ml Documented By: Admin: 04/14/22 05:33 Dose: 10 ml Documented By: Admin: 04/13/22 23:57 Dose: 10 ml Documented By: Admin: 04/13/22 13:05 Dose: 10 ml Documented By: Admin: 04/13/22 05:14 Dose: 10 ml Documented By: Admin: 04/13/22 00:24 Dose: Not Given Documented By: Admin: 04/12/22 14:36 Dose: Not Given Documented By: Admin: 04/12/22 05:29 Dose: 10 ml Documented By: Admin: 04/11/22 20:21 Dose: 10 ml Documented By: Admin: 04/11/22 12:51 Dose: Not Given Documented By: Admin: 04/11/22 05:29 Dose: 10 ml Documented By: Admin: 04/10/22 20:24 Dose: 10 ml Documented By: Admin: 04/10/22 13:26 Dose: 10 ml Documented By: CHALINO Tamsulosin HCl (Tamsulosin 0.4 Mg Capsule) 0.4 mg PO QDAY ANA Last Admin: 04/15/22 09:39 Dose: 0.4 mg Documented By: KINDRA Shift Summary 04/15/22 04:44 Shift Summary by Holli Jones Admitted for colectomy. Up ad kamilla in room to BR, voiding well. Has had no pain tonight. Dressing to abdomen CDI; gaurav intact. Will likely d/c home today. Initialized on 04/15/22 04:44 - END OF NOTE
--- NOTE | 2022-04-17 15:27 | Operative Note ---
DATE OF OPERATION: 04/10/2022 PREOPERATIVE DIAGNOSIS: Ascending colon cancer. POSTOPERATIVE DIAGNOSES: Ascending colon cancer. PROCEDURE: Right colectomy. SURGEON: Song Bullock M.D. FINDINGS: A thickened scar in the proximal ascending colon in the area of previous polypectomy. DESCRIPTION OF PROCEDURE: Under general anesthesia, the patient's abdomen was prepped and draped in a sterile field. Timeout procedure was carried out as per protocol. The patient had had a previous resection of a large polyp, which had invasive adenocarcinoma extending to the margin of resection. No ink tattooing was done for localization. Based on the information available from the christian counselor, it was elected to do a simple right colon, more because of the patulous nature of the cecum, the position of the presumed lesion, and the vascular supply. The cecum was mobilized along the lateral peritoneal attachments up to the hepatic flexure. The terminal ileum was divided using Contour stapler. The mesocolon was then divided using the Voyant cautery device. This was continued up to the proximal transverse colon. The colon was divided proximal to the hepatic flexure, in essence, removing the entire right colon. Once this was removed, I examined the colon on the back table and confirmed the biopsy site to make sure that the lesion was removed. The proximal transverse colon was mobilized by dividing the gastrocolic omentum. Once adequate length was obtained, a [id number] anastomosis was performed stapling the side of the terminal ileum to the transverse colon using a MAGEN 55 stapler. The residual opening was stapled using a TA 60 stapler. The anastomotic line was oversewn using running locking 2-0 Prolene. The mesocolon was closed with 2-0 Monocryl. Irrigation was carried out. No drain was needed. A nasogastric tube was positioned in the stomach and the fascia was closed using running #1 Prolene. Subcutaneous tissue was closed with 2-0 Monocryl. The skin was closed with gaurav. The patient tolerated the procedure well. Tegaderm dressing was placed. He was awakened and transferred to the postanesthetic care unit in satisfactory condition. LCS:nadeem Job ID: [id number] Doc ID: [id number] Song Bullock M.D.
== END 2022-04-15 14:25 | disposition home or self-care (01) | DRG 331 ==
LOC: MEDSUR 06:26 → EDSTATUS 09:00
PROVIDERS: ADMIT Family Medicine Adult Medicine; ATTEND Family Medicine Adult Medicine

== ENCOUNTER 2022-05-14 19:17 | Inpatient (IN) ==
[2022-05-14] MEDS ORDERED: IOPAMIDOL 100 ML BOTTLE IV ONE (19:18)
[2022-05-14] MEDS ORDERED: ONDANSETRON 4 MG/2 ML VIAL IV ONE (19:23)
[2022-05-14] MEDS ORDERED: 0.9 % SODIUM CHLORIDE 1,000 ML IV ONE (19:23)
--- NOTE | 2022-05-14 19:41 | Emergency Department Note ---
Abdominal Pain HPI General Chief Complaint: Abdominal Pain Stated Complaint: vomiting Time Seen by Provider: 05/14/22 19:19 Source: patient Mode of arrival: ambulatory Limitations: no limitations History of Present Illness HPI Narrative: Narrative: Patient presents ED with complaints of abdominal pain x1 day. Pain is rated 7/10 and located on the right side of his abdomen. He describes as a deep ache but at times it is very sharp. He reports associated nausea and vomiting that started about 1600 today. He states he had nonstop vomiting since then. He last tried to eat a bowl of cereal at approximately 430 but he threw it all up. He states his last bowel movement was at 10 AM this morning he has not passed any gas since that time. He reports he had a fever of 101 earlier today. He last took Tylenol this morning. Denies chills, shortness of breath, cardiac chest pain, heart palpitation, melena, medic easier, hemoptysis, dysuria, hematuria, urinary frequency. Patient denies any other alleviating or aggravating factors. Patient recently had a colectomy with Dr. Bullock approximately 1 month ago for a colon polyp. Related Data Home Medications Medication Instructions Recorded Confirmed hydrochlorothiazide 25 mg tablet 12.5 mg PO QDAY 04/22/17 04/25/22 aspirin 81 mg capsule 81 mg PO QDAY 03/14/22 04/25/22 omeprazole 20 mg capsule,delayed 20 mg PO QDAY 03/14/22 04/25/22 release tamsulosin 0.4 mg capsule 0.4 mg PO QDAY 03/14/22 04/25/22 acetaminophen 325 mg capsule 650 mg PO TID PRN Pain 04/01/22 04/25/22 ferrous sulfate 325 mg (65 mg 325 mg PO QDAY 04/01/22 04/25/22 iron) tablet telmisartan 40 mg tablet 40 mg PO BID 04/01/22 04/25/22 sertraline 25 mg tablet 25 mg PO QHS 04/08/22 04/25/22 Previous Rx's Medication Instructions Recorded peg 3350-electrolytes 236 240 ml PO Q10M #4,000 mL 04/08/22 gram-22.74 gram-6.74 gram-5.86 gram solution (Golytely) oxycodone-acetaminophen 10 mg-325 1 tab PO Q4H PRN Pain #20 tabs 04/15/22 mg tablet (Endocet) Allergies Allergy/AdvReac Type Severity Reaction Status Date / Time valacyclovir [From Valtrex] AdvReac Severe Watery Eye Verified 05/14/22 19:20 Review of Systems ROS ROS Narrative: Narrative: All systems ED: reviewed and negative except as stated. 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 (Chronic) Dizziness (Chronic) Hemangioma, intracranial structures (Chronic) GERD (gastroesophageal reflux disease) (Chronic) Lesion of lip (Chronic) Abdominal pain (Chronic) Pain in left knee (Chronic) Headache (Chronic) BPH (benign prostatic hyperplasia) (Chronic) Brain tumor (Chronic) Positive fecal occult blood test (Chronic) Malignant neoplasm of colon (Chronic) Hearing loss (Chronic) Tinnitus (Chronic) Rash (Chronic) Hematuria (Chronic) Osteoarthritis of right knee (Chronic) Hypertension (Chronic) Medical History Abdominal pain Blurry vision BPH (benign prostatic hyperplasia) Brain tumor Chronic post-traumatic stress disorder Dizziness Dry eyes Functional visual loss GERD (gastroesophageal reflux disease) Headache Hearing loss Hemangioma, intracranial structures Hematuria Herpes labialis Hypertension Knee pain Lesion of lip Malignant neoplasm of colon Neoplasm of meninges Osteoarthritis of right knee Pain in left knee Positive fecal occult blood test Rash Tinnitus Surgical History History of back surgery History of brain surgery Tumor removal History of colectomy 04/10/2022-right colectomy History of esophagogastroduodenoscopy (EGD) Hx of arthroscopic knee surgery Hx of colonoscopy Family History Father Prostate cancer Colon cancer Uncle Colon cancer Maternal Other Cancer Diabetes Hypertension Social History Smoking Status: Never smoker Alcohol Intake Frequency: a few times a week Substance Use: does not use Exam Narrative Narrative: Narrative: General Limitations: no limitations General appearance: Present alert Respiratory Respiratory: Present normal lung sounds bilaterally; Absent respiratory distress Cardiovascular Cardiovascular: Present regular rate and normal rhythm Adbominal Abdominal: Present soft, tenderness and hypoactive bowel sounds Expanded Abdominal Abdominal Tenderness: Present RUQ, RLQ and other (Surgical incision is intact with no signs of dehiscence or infection) Extremities Extremities: Present normal capillary refill Neurological Neurological: Present oriented X3 and normal gait Psychiatric Psychiatric: Present normal affect and normal mood Skin Skin: Present warm (WNL) and intact Course Course Course Narrative: Patient was evaluated for abdominal pain. Patient did report fever with a T-max of 101 at home. He was tachycardic upon arrival so sepsis protocol was initiated. Patient was bolused IV fluids, blood cultures were obtained, antibiotics were started. Patient lactic acid was greater than 2. Repeat lactic acid scheduled for 2200. His white cell count was elevated at 12. Other labs are unremarkable. CT abdomen pelvis obtained with image reviewed myself which show a partial small bowel obstruction just proximal to the anastomosis site. Case was discussed with on-call surgeon, Dr. Bullock who also performed patient recent colectomy who recommend the patient be admitted to the hospital. NG tube was placed. Plan was discussed with the patient he expressed verbal understanding and agreement. Consultations Consultation #1: Case discussed with on-call surgeon, Dr. Bullock, who was agreed to admit the patient to the hospital. He requested patient have an NG tube placed. Time: 20:38 Vital Signs Vital signs: Vital Signs Temperature 98.3 F 05/14/22 19:18 Pulse Rate 102 H 05/14/22 19:18 Respiratory Rate 18 05/14/22 19:18 Blood Pressure 163/114 05/14/22 19:18 Pulse Oximetry (%) 96 05/14/22 19:18 Oxygen Delivery Method 05/14/22 19:18 Temperature 98.3 F 05/14/22 19:18 Pulse Rate 83 05/14/22 19:46 Respiratory Rate 18 05/14/22 19:18 Blood Pressure 153/109 05/14/22 19:46 Pulse Oximetry (%) 95 05/14/22 19:46 Oxygen Delivery Method 05/14/22 19:18 MDM MDM Narrative Medical decision making narrative: Narrative: Differential Diagnosis Differential Diagnosis: Small bowel obstruction, nausea vomiting diarrhea Medical Records Medical records reviewed: Yes I reviewed the patient's medical records. Lab Data Lab results reviewed: Yes I reviewed the patient's lab results. Result diagrams: 05/14/22 19:39 Labs: Lab Results 05/14/22 05/14/22 05/14/22 Range/Units 19:39 19:39 19:45 WBC 12.0 H (4.5-11.0) K/mcL RBC 5.24 (4.63-6.08) M/mcL Hgb 15.4 (13.7-17.5) g/dL Hct 45.9 (40.1-51.0) % POC Hct 45.0 (41-55) MCV 87.6 (80.0-100.0) fL MCH 29.4 (26.0-34.0) pg MCHC 33.6 (31.0-36.0) g/dL RDW 12.6 (11.5-14.5) % Plt Count 230 (140-440) K/mcL MPV 10.2 (7.4-10.4) fL Immature Gran % (Auto) 0.5 (0.0-0.5) % Neut % (Auto) 87.4 H (38.0-78.0) % Lymph % (Auto) 6.8 L (15.5-49.0) % [place] % (Auto) 3.3 (1.0-12.0) % Eos % (Auto) 1.4 (0.0-7.0) % Baso % (Auto) 0.6 (0.0-2.0) % Lymph # (Auto) 0.82 L (1.50-4.80) K/mcL [place] # (Auto) 0.39 (0.10-0.90) K/mcL Eos # (Auto) 0.17 (0.00-0.70) K/mcL Baso # (Auto) 0.07 (0.00-0.30) K/mcL Immature Gran # 0.06 H (0.00-0.05) K/mcl Absolute Neutrophils 10.47 H (1.80-8.00) K/mcL POC VBG pH (7.32-7.42) POC VBG pCO2 at Temp (41-51) POC VBG pO2 (25-40) POC VBG HCO3 (24-28) POC VBG Total CO2 (25-29) POC Venous O2 Sat (40-70) POC VBG Base Excess (-2-2) VBG Lactic Acid (0.5-2) POC Sodium 139 (133-145) POC Potassium 3.6 (3.3-5.1) POC Chloride 101 (96-108) POC Total CO2 25.0 (22-30) POC BUN 13 (6-20) POC Creatinine 0.9 (0.6-1.2) POC Glucose 130 H (70-105) POC WB Ioniz Calcium 1.16 (1.16-1.32) Total Bilirubin 1.0 (0.1-1.0) mg/dL Direct Bilirubin 0.3 H (<0.3) mg/dL AST 15 (<40) U/L ALT 13 (<40) U/L Alkaline Phosphatase 131 H (39-117) U/L Total Protein 6.7 (5.9-8.4) gm/dL Albumin 4.4 (3.2-5.2) gm/dL Globulin 2.3 (2.2-3.7) gm/dL 05/14/22 Range/Units 19:53 WBC (4.5-11.0) K/mcL RBC (4.63-6.08) M/mcL Hgb (13.7-17.5) g/dL Hct (40.1-51.0) % POC Hct (41-55) MCV (80.0-100.0) fL MCH (26.0-34.0) pg MCHC (31.0-36.0) g/dL RDW (11.5-14.5) % Plt Count (140-440) K/mcL MPV (7.4-10.4) fL Immature Gran % (Auto) (0.0-0.5) % Neut % (Auto) (38.0-78.0) % Lymph % (Auto) (15.5-49.0) % [place] % (Auto) (1.0-12.0) % Eos % (Auto) (0.0-7.0) % Baso % (Auto) (0.0-2.0) % Lymph # (Auto) (1.50-4.80) K/mcL [place] # (Auto) (0.10-0.90) K/mcL Eos # (Auto) (0.00-0.70) K/mcL Baso # (Auto) (0.00-0.30) K/mcL Immature Gran # (0.00-0.05) K/mcl Absolute Neutrophils (1.80-8.00) K/mcL POC VBG pH 7.42 (7.32-7.42) POC VBG pCO2 at Temp 38.7 L (41-51) POC VBG pO2 36 (25-40) POC VBG HCO3 25.3 (24-28) POC VBG Total CO2 26.0 (25-29) POC Venous O2 Sat 70.0 (40-70) POC VBG Base Excess 1.0 (-2-2) VBG Lactic Acid 2.1 H (0.5-2) POC Sodium (133-145) POC Potassium (3.3-5.1) POC Chloride (96-108) POC Total CO2 (22-30) POC BUN (6-20) POC Creatinine (0.6-1.2) POC Glucose (70-105) POC WB Ioniz Calcium (1.16-1.32) Total Bilirubin (0.1-1.0) mg/dL Direct Bilirubin (<0.3) mg/dL AST (<40) U/L ALT (<40) U/L Alkaline Phosphatase (39-117) U/L Total Protein (5.9-8.4) gm/dL Albumin (3.2-5.2) gm/dL Globulin (2.2-3.7) gm/dL Core Measures AMI Core Measures Followed: Yes Discharge Plan Patient/Caregiver Discharge Instructions Pt seen by DIRECTOR REACTOR PROJECTS/PA only: No Clinical Impression: Partial small bowel obstruction Patient Disposition: Xfer As Outpt/Obs ([facility]) Condition: Good Follow up with: Verito Bullock ARNP [Primary Care Provider] - Prescriptions: No Action peg 3350-electrolytes [Golytely] 236-22.74-6.74 -5.86 gram recon soln 240 ml PO Q10M Qty: 4000 0RF hydrochlorothiazide 25 mg tablet 12.5 mg PO QDAY ferrous sulfate 325 mg (65 mg iron) tablet 325 mg PO QDAY telmisartan 40 mg tablet 40 mg PO BID acetaminophen 325 mg capsule 650 mg PO TID PRN (Reason: Pain) aspirin 81 mg Capsule 81 mg PO QDAY tamsulosin 0.4 mg Capsule 0.4 mg PO QDAY omeprazole 20 mg Capsule,Delayed Release(Dr/Ec) 20 mg PO QDAY sertraline 25 mg Tablet 25 mg PO QHS oxycodone-acetaminophen [Endocet] 10-325 mg tablet 1 tab PO Q4H PRN (Reason: Pain) Qty: 20 0RF
[2022-05-14 19:48] LABS: POC Calcium, Ionized 1.16 (1.16-1.32); POC Creatinine 0.9 (0.6-1.2); POC Potassium 3.6 (3.3-5.1)
[2022-05-14] MEDS ORDERED: 0.9 % SODIUM CHLORIDE 2,330 ML IV ONE (20:11)
[2022-05-14 20:27] LABS: Basophils # (Auto) 0.07 K/mcL (0.00-0.30); Basophils % (Auto) 0.6 % (0.0-2.0); Eosinophils # (Auto) 0.17 K/mcL (0.00-0.70); Eosinophils % (Auto) 1.4 % (0.0-7.0); Hematocrit 45.9 % (40.1-51.0); Hemoglobin 15.4 g/dL (13.7-17.5); Lymphocytes # (Auto) 0.82 K/mcL (1.50-4.80); Lymphocytes % (Auto) 6.8 % (15.5-49.0); Mean Cell Volume 87.6 fL (80.0-100.0); Mean Corpuscular HGB Conc 33.6 g/dL (31.0-36.0); Mean Platelet Volume 10.2 fL (7.4-10.4); Monocytes # (Auto) 0.39 K/mcL (0.10-0.90); Monocytes % (Auto) 3.3 % (1.0-12.0); Neutrophils % (Auto) 87.4 % (38.0-78.0); Platelet Count 230 K/mcL (140-440); RBC 5.24 M/mcL (4.63-6.08); Red Cell Distribution Width 12.6 % (11.5-14.5)
[2022-05-14] MEDS ORDERED: VANCOMYCIN 1,000 MG in 0.9 % SODIUM CHLORIDE 250 ML IV ONE (20:30)
[2022-05-14] MEDS ORDERED: PIPERACILLIN SODIUM/TAZOBACTAM 3.375 GM in DEXTROSE 5% IN WATER 50 ML IV ONE (20:30)
[2022-05-14] MEDS ORDERED: fentaNYL 100 MCG/2 ML VIAL IV ONE (20:32)
[2022-05-14] MEDS ORDERED: ONDANSETRON 4 MG/2 ML VIAL IV PRN (20:40)
[2022-05-14] MEDS ORDERED: morphine 2 MG/ML VIAL IV PRN (20:40)
[2022-05-14] MEDS ORDERED: NALOXONE HCL 0.4 MG/ML VIAL IV PRN (20:40)
[2022-05-14 20:46] LABS: ALT/SGPT 13 U/L (<40); AST/SGOT 15 U/L (<40); Albumin 4.4 gm/dL (3.2-5.2); Alkaline Phosphatase 131 U/L (39-117); Bilirubin,Direct 0.3 mg/dL (<0.3); Globulin 2.3 gm/dL (2.2-3.7)
[2022-05-14] MEDS ORDERED: PIPERACILLIN SODIUM/TAZOBACTAM 3.375 GM in DEXTROSE 5% IN WATER 50 ML IV SCH (21:00)
[2022-05-14] MEDS ORDERED: LORazepam 2 MG/ML VIAL IV PRN (21:26)
--- NOTE | 2022-05-14 21:26 | General Surg History&Physical ---
HPI History of Present Illness Patient information: Note initiated : 05/14/22 at 9:26 pm Service Date, if different from initiated Date: [] Patient: Ubaldo Oliveira 71 y/o M admitted on for vomiting. Chief Complaint: [] Chief complaint: Abdominal pain with nausea and vomiting History of present illness: Mr. Oliveira is a 71 year old M who presents to the emergency room with a 1 day history of crampy abdominal pain with recurrent nausea vomiting. He had acute onset of pain after eating with multiple episodes of nausea and vomiting. The vomiting ceased for few hours but recurred after eating. He had increasing pain and came to the emergency room for evaluation. In the emergency room he is noted to have a distended abdomen with hyperactive bowel sounds. CT of the abdomen shows partial obstruction of the small bowel proximal to ileocolic anastomosis. He is status post right colectomy for adenocarcinoma of the colon. This surgery was performed on 10 April 2022. He had been doing well since discharge prior to the onset of symptoms. He denies any fever or chills. Review of Systems All systems: reviewed and no additional remarkable complaints except as stated EENT Ears: Present decreased hearing Cardiovascular Cardiovascular: Absent chest pain, dyspnea on exertion or palpatations Respiratory Respiratory: Absent dyspnea on exertion or wheezing Gastrointestinal Gastrointestinal: Present change in bowel habits, cramping, early satiety, hear tburn, nausea and vomiting Genitourinary Genitourinary: difficulty urinating, urinary frequency and urinary hesitancy Musculoskeletal Musculoskeletal: Absent arthralgias, muscle weakness or myalgias Neurological Neurological: Absent confusion Psychiatric Psychiatric: Absent behavioral changes, confusion or depression Hematologic/Lymphatic Hematologic/Lymphatic: Absent easy bleeding, easy bruising or lymphadenopathy PFSH PFSH All Active Problems Partial small bowel obstruction (Acute) Diplopia (Acute) Malignant neoplasm of right colon (Acute) Blurry vision (Chronic) Dry eyes (Chronic) Chronic post-traumatic stress disorder (Chronic) Knee pain (Chronic) 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) Herpes labialis (Chronic) Dizziness (Chronic) Hemangioma, intracranial structures (Chronic) GERD (gastroesophageal reflux disease) (Chronic) Lesion of lip (Chronic) Abdominal pain (Chronic) Pain in left knee (Chronic) Headache (Chronic) BPH (benign prostatic hyperplasia) (Chronic) Brain tumor (Chronic) Positive fecal occult blood test (Chronic) Malignant neoplasm of colon (Chronic) Hearing loss (Chronic) Tinnitus (Chronic) Rash (Chronic) Hematuria (Chronic) Osteoarthritis of right knee (Chronic) Hypertension (Chronic) Medical History Abdominal pain Blurry vision BPH (benign prostatic hyperplasia) Brain tumor Chronic post-traumatic stress disorder Dizziness Dry eyes Functional visual loss GERD (gastroesophageal reflux disease) Headache Hearing loss Hemangioma, intracranial structures Hematuria Herpes labialis Hypertension Knee pain Lesion of lip Malignant neoplasm of colon Neoplasm of meninges Osteoarthritis of right knee Pain in left knee Positive fecal occult blood test Rash Tinnitus Surgical History History of back surgery History of brain surgery Tumor removal History of colectomy 04/10/2022-right colectomy History of esophagogastroduodenoscopy (EGD) Hx of arthroscopic knee surgery Hx of colonoscopy Family History Father Prostate cancer Colon cancer Uncle Colon cancer Maternal Other Cancer Diabetes Hypertension Social History occupational status: retired physical activity: walking frequency: daily duration: 30-45 minutes/day smoking status: Never smoker alcohol intake frequency: a few times a week substance use type: does not use MEDS/ALLERGIES Home Medications and Allergies Home Medications Medication Instructions Recorded Confirmed Type hydrochlorothiazide 25 mg tablet 12.5 mg PO QDAY 04/22/17 05/14/22 History aspirin 81 mg capsule 81 mg PO QDAY 03/14/22 05/14/22 History omeprazole 20 mg capsule,delayed 20 mg PO QDAY 03/14/22 05/14/22 History release acetaminophen 325 mg capsule 650 mg PO TID PRN Pain 04/01/22 05/14/22 History ferrous sulfate 325 mg (65 mg 325 mg PO QDAY 04/01/22 05/14/22 History iron) tablet sertraline 25 mg tablet 25 mg PO QHS 04/08/22 05/14/22 History oxycodone-acetaminophen 10 mg-325 1 tab PO Q4H PRN Pain #20 tabs 04/15/22 05/14/22 Rx mg tablet (Endocet) telmisartan 80 mg PO QDAY 05/14/22 05/14/22 History Allergies Allergy/AdvReac Type Severity Reaction Status Date / Time valacyclovir [From Valtrex] AdvReac Severe Watery Eye Verified 05/14/22 22:11 Physical Examination Vital Signs Vital signs: Temp Pulse Resp BP Pulse Ox O2 Del Method 98.3 F 66 18 152/97 94 05/14/22 19:18 05/14/22 21:01 05/14/22 19:18 05/14/22 21:01 05/14/22 21:01 05/14/22 19:18 General physical appearance General physical exam: well developed, well nourished, moderate distress and moderate pain Eyes Eye exam: PERRL and normal ocular movement ENT ENT exam: no congestion and decreased hearing Head Head exam IM: Present atraumatic, normal inspection and normocephalic Neck Neck exam: no masses, no bruits, trachea midline, no lymphadenopathy and no venous distension Cardiovascular Cardiovascular exam IM: Present normal rate and rhythm, RRR, +S1 and +S2; Absent gallop or JVD Respiratory Respiratory exam: normal expansion, normal respiratory effort and clear to auscultation Abdomen Abdomen: Present tender (Mild mid abdominal tenderness) and surgical scars (Well-healed surgical scar) Integumentary Integumentary: Present no rash, no growths and no abnormal pigmentation Neurologic Neurologic: Present normal coordination and normal sensation Musculoskeletal Musculoskeletal: Present normal gait and normal posture Psychiatric Psychiatric: Present oriented to time, oriented to person, oriented to place, speech is normal and memory intact Results Labs Result diagrams: 05/16/22 05:12 05/16/22 05:12 Labs: Abnormal lab results 05/14/22 05/14/22 05/14/22 Range/Units 19:39 19:39 19:45 WBC 12.0 H (4.5-11.0) K/mcL Neut % (Auto) 87.4 H (38.0-78.0) % Lymph % (Auto) 6.8 L (15.5-49.0) % Lymph # (Auto) 0.82 L (1.50-4.80) K/mcL Immature Gran # 0.06 H (0.00-0.05) K/mcl Absolute Neutrophils 10.47 H (1.80-8.00) K/mcL POC VBG pCO2 at Temp (41-51) VBG Lactic Acid (0.5-2) POC Glucose 130 H (70-105) Direct Bilirubin 0.3 H (<0.3) mg/dL Alkaline Phosphatase 131 H (39-117) U/L 05/14/22 Range/Units 19:53 WBC (4.5-11.0) K/mcL Neut % (Auto) (38.0-78.0) % Lymph % (Auto) (15.5-49.0) % Lymph # (Auto) (1.50-4.80) K/mcL Immature Gran # (0.00-0.05) K/mcl Absolute Neutrophils (1.80-8.00) K/mcL POC VBG pCO2 at Temp 38.7 L (41-51) VBG Lactic Acid 2.1 H (0.5-2) POC Glucose (70-105) Direct Bilirubin (<0.3) mg/dL Alkaline Phosphatase (39-117) U/L Diabetes panel 05/14/22 Range/Units 19:39 AST 15 (<40) U/L ALT 13 (<40) U/L Alkaline Phosphatase 131 H (39-117) U/L Total Protein 6.7 (5.9-8.4) gm/dL Albumin 4.4 (3.2-5.2) gm/dL Calcium panel 05/14/22 Range/Units 19:39 Albumin 4.4 (3.2-5.2) gm/dL Adrenal panel 05/14/22 Range/Units 19:39 Total Bilirubin 1.0 (0.1-1.0) mg/dL AST 15 (<40) U/L ALT 13 (<40) U/L Alkaline Phosphatase 131 H (39-117) U/L Total Protein 6.7 (5.9-8.4) gm/dL Albumin 4.4 (3.2-5.2) gm/dL All other labs normal. A/P Assessment and plan (1) Partial small bowel obstruction: Status: Acute (2) Malignant neoplasm of right colon: Status: Acute (3) Chronic post-traumatic stress disorder: Status: Chronic (4) Neoplasm of meninges: Status: Chronic (5) GERD (gastroesophageal reflux disease): Status: Chronic Plan Admission to inpatient Nasogastric decompression Pantoprazole IV every 12 hours Gio 10 mg IV every 6 hours Follow-up abdominal x-ray in the morning Probable small bowel follow-through in the morning Urgent operation if small bowel follow-through is positive for obstruction Sepsis Sepsis Identified: No Narrative Plan of Treatment: Use MiraLAX twice daily Time Spent With Patient Time: Total time spent is greater than 50% in coordination of care (as documented) at patient's floor/unit and/or counseling patient:
--- NOTE | 2022-05-15 02:16 | XRay Report ---
CLINICAL INFORMATION: ng placement COMPARISON: None. FINDINGS: NG tube overlies the gastric body. Stomach and proximal small bowel are mildly dilated with decompression of distal small bowel and colon.. There is no free air, soft tissue mass, organomegaly or pathologic calcification. IMPRESSION: NG tube in satisfactory position. Partial mid jejunal obstruction Interpreted and Authenticated by: Lauro Yuan 05/15/22
[2022-05-15] MEDS: PIPERACILLIN SODIUM/TAZOBACTAM 3.375 GM in DEXTROSE 5% IN WATER 50 ML IV SCH ×5 (02:51→23:51)
--- NOTE | 2022-05-15 03:58 | Cat Scan Report ---
CLINICAL INFORMATION: Hemicolectomy approximately one month prior. Postoperative abdominal pain and nausea COMPARISON: Abdomen and pelvic CT 01/20/2013 TECHNIQUE: Following enteric contrast, 80 cc of Isovue-370 were injected intravenously, and 60 seconds later, 0.625 mm helical slices were obtained from the mid heart through the subtrochanteric regions. Following reconstruction, 2.5 mm sagittal, coronal and axial reformatted images were processed and reviewed at bone, lung and soft tissue windows. Five minutes later, 0.625 mm helical slices were obtained from the mid heart through the kidneys and viewed at soft tissue windows.The exam was performed using radiation dose optimization techniques including, but not limited to, automated exposure control, adjustment of the mA and/or kV according to patient size and use of iterative reconstruction technique. FINDINGS: The lung bases are clear. No effusions. The visualized heart is grossly normal in size with a small simple appearing pericardial effusion. The effusion is new from the previous exam. Abdominal images show mild fatty change within the liver. Scattered small simple cysts, ranging up to 11 mm the posterior segment right hepatic lobe, demonstrate long-term stability. Gallbladder and bile ducts are normal colon CBD is 5 mm. Multiple parapelvic cysts in both kidneys are unchanged. Both kidneys are normal in size and attenuation. Both adrenal glands, spleen, and pancreas are normal in size, configuration and attenuation without focal lesion. 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 SMA, DELANEY, renal and iliac arteries are widely patent. Pelvic images show moderate prostate enlargement with a transverse dimension of 6 cm. Mild diffuse wall thickening of urinary bladder suggests chronic bladder outlet narrowing. Seminal vesicles are normal. Right hemicolectomy changes noted with ileum anastomosis to the hepatic flexure. Stomach and small bowel are moderately dilated to the level of the surgical anastomosis suggesting partial small bowel obstruction . The transverse colon is normal diameter but the descending and rectosigmoid colon are decompressed. A small amount of free fluid is noted in the deep true pelvis. No free air or adenopathy. Bone windows show no osseous abnormality. IMPRESSION: 1. Right hemicolectomy changes with ileal anastomosis to the proximal transverse colon. Probable partial small bowel obstruction at the anastomotic site. Consider small bowel follow-through to confirm. 2. Moderate prostate enlargement with mild diffuse wall thickening of urinary bladder compatible with chronic bladder outlet narrowing due to prostatism. No change. 3. 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 The patient is at risk for median arcuate ligament syndrome. Please correlate with chronic/intermittent postprandial epigastric pain and nausea. 4. Mild fatty change within the liver with scattered small hepatic cysts range demonstrate long-term stability. 5. Multiple parapelvic cysts in both kidneys-stable 6. Moderate elevation left diaphragm-new from 2013 study 7. Small simple pericardial effusion-new from previous exam Interpreted and Authenticated by: Lauro Yuan 05/15/22
[2022-05-15 06:31] LABS: Basophils # (Auto) 0.06 K/mcL (0.00-0.30); Basophils % (Auto) 0.9 % (0.0-2.0); Eosinophils # (Auto) 0.33 K/mcL (0.00-0.70); Hematocrit 38.1 % (40.1-51.0); Hemoglobin 12.7 g/dL (13.7-17.5); Lymphocytes # (Auto) 0.74 K/mcL (1.50-4.80); Lymphocytes % (Auto) 11.1 % (15.5-49.0); Mean Cell Volume 88.6 fL (80.0-100.0); Mean Corpuscular HGB Conc 33.3 g/dL (31.0-36.0); Mean Platelet Volume 9.9 fL (7.4-10.4); Monocytes # (Auto) 0.46 K/mcL (0.10-0.90); Monocytes % (Auto) 6.9 % (1.0-12.0); Neutrophils % (Auto) 75.8 % (38.0-78.0); Platelet Count 160 K/mcL (140-440); Red Cell Distribution Width 12.6 % (11.5-14.5); WBC 6.7 K/mcL (4.5-11.0)
[2022-05-15 07:06] LABS: ALT/SGPT 8 U/L (<40); AST/SGOT 13 U/L (<40); Albumin 3.4 gm/dL (3.2-5.2); Albumin/Globulin Ratio 2.1 (1.0-2.3); Alkaline Phosphatase 97 U/L (39-117); Bilirubin,Direct 0.2 mg/dL (<0.3); Bilirubin,Total 0.8 mg/dL (0.1-1.0); Blood Urea Nitrogen 10 mg/dL (8-23); Carbon Dioxide 24 mmol/L (22-30); Chloride 105 mmol/L (96-108); Globulin 1.6 gm/dL (2.2-3.7); Glomerular Filtration Rate 89; Glucose 95 mg/dL (70-105); Lactate Dehydrogenase 170 U/L (135-225); Phosphorous 3.3 mg/dL (2.5-4.5); Triglycerides 80 mg/dL (<150); Uric Acid 3.6 mg/dL (2.5-8.0)
--- NOTE | 2022-05-15 12:17 | General Surgery Progress Note ---
SUBJECTIVE Subjective Patient information: Note initiated : 05/15/22 at 12:12 pm Service Date, if different from initiated Date: [] Patient: Ubaldo Oliveira 71 y/o M admitted on 05/14/22 for vomiting. Chief Complaint: [] Principal diagnosis: Small bowel obstruction Interval history: Patient states that he feels better. He started having flatus about 4 AM and is passed what he describes as large amount of gas. His crampy abdominal pain has resolved. X-rays of the abdomen from this morning shows gas in his colon and decrease in distention of the small bowel. A small bowel follow-through has been ordered and the initial film does not show any dilatation of the small bowel. White blood count 6.7, hemoglobin 12.7, hematocrit 38.1 potassium 3.4 BUN 10, creatinine 0.8. Constitutional Vitals: Vital Signs Temp Pulse Resp BP Pulse Ox O2 Del Method 97.8 F 62 14 155/94 91 05/15/22 11:54 05/15/22 11:54 05/15/22 11:54 05/15/22 11:54 05/15/22 11:54 05/15/22 11:54 Period Temp Pulse Resp BP Sys/Cueva Pulse Ox O2 Del Method O2 Flow Rate Last 24 Hr 97.4 F-98.3 F 62-102 14-18 150-176/93-114 91-98 Room Air-Room Air Intake and Output 05/14/22 05/15/22 05/15/22 21:59 05:59 13:59 Intake Total 1672008 50 Output Total 645 750 Balance 1671 1364 -700 Weight 220 lb 227 lb 8 oz Intake & Output: Intake & Output 05/14/22 05/15/22 05/15/22 21:59 05:59 13:59 Intake Total 1671 2008 50 Output Total 645 750 Balance 1671 1364 -700 Weight 220 lb 227 lb 8 oz Intake: IV 1671 2008 50 Sodium Chloride 0.9% 2,330 ml @ 1621 1709 4660 mls/hr IV .Q30M ONE Rx#: [id number] Zosyn 3.375 gm In Dextrose 5% 50 50 50 in Water 50 ml @ 100 mls/hr IV Q6H [facility] Rx#:[id number] Vancomycin 1,000 mg In Sodium 250 Chloride 0.9% 250 ml @ 250 mls/ hr IV ONCE ONE Rx#:[id number] Oral 0 Tube Feeding 0 0 Output: Gastric Drainage 170 750 Right Nare 170 750 Void Amount 475 Other: Urine Appearance Clear Clear Urine Color Yellow Bright Yellow Urine Odor Normal ENT ENT exam: Present normal exam and normal oropharynx Neck Neck exam: Present full ROM and normal inspection; Absent tenderness Respiratory Respiratory exam: Present normal respiratory exam and CTAB; Absent rales Cardiovascular Cardiovascular exam: Present normal rate and rhythm, RRR, +S1 and +S2; Absent JVD GI/Abdominal GI/Abdominal exam: Present normal bowel sounds; Absent distended, guarding or tenderness Extremities Exam Extremities exam: Present full ROM and neurovascular intact; Absent tenderness Neurological Exam Neurological exam: Present alert and oriented X3; Absent motor sensory deficit Psychiatric Psychiatric exam: Present normal affect and normal mood A/P Assessment and plan (1) Partial small bowel obstruction: Status: Acute (2) GERD (gastroesophageal reflux disease): Status: Chronic Plan Follow-up small bowel follow-through Probable advance diet later this evening or in the a.m. Sepsis Sepsis Identified: No Time Spent With Patient Time: Total time spent is greater than 50% in coordination of care (as documented) at patient's floor/unit and/or counseling patient:
[2022-05-15] MEDS: 0.9 % SODIUM CHLORIDE 1,000 ML IV SCH ×2 (12:33→19:34)
[2022-05-15] MEDS ORDERED: DIATRIZOATE MEGLU/DIATRIZO SOD 120 ML BOTTLE PO ONE (12:54)
--- NOTE | 2022-05-15 14:11 | XRay Report ---
CLINICAL INFORMATION: small bowel obstruction COMPARISON: None. FINDINGS: NG tip overlies the gastric body The stool gas pattern is unremarkable-small bowel obstruction pattern is not evident on plain film. There is no free air, soft tissue mass, organomegaly or pathologic calcification. IMPRESSION: Normal abdomen Interpreted and Authenticated by: Lauro Yuan 05/15/22
--- NOTE | 2022-05-15 15:23 | XRay Report ---
CLINICAL INFORMATION: History of right colectomy with ileal transverse colon anastomosis. Suspect recurrent small bowel obstruction at the anastomosis. COMPARISON: Abdomen and pelvic CT 05/14/2022 TECHNIQUE: Following wheat shipper imaging, are soluble contrast was injected through indwelling NG tube and serial imaging of the abdomen and pelvis was performed over one hour. FINDINGS: Stomach is normal size with unremarkable rugal fold pattern. Small bowel is normal in contour and caliber with no evidence of distal small bowel obstruction. Small bowel transit time is approximately 40 minutes. IMPRESSION: Normal exam. No evidence of distal small bowel obstruction. Interpreted and Authenticated by: Lauro Yuan 05/15/22
[2022-05-15] MEDS ORDERED: MAGNESIUM HYDROXIDE 30 ML ORAL.SUSP PO PRN (16:02)
[2022-05-15] MEDS: METOCLOPRAMIDE 10 MG/2 ML VIAL IV SCH ×2 (18:18→23:51)
[2022-05-16] MEDS: 0.9 % SODIUM CHLORIDE 1,000 ML IV SCH ×3 (02:27→14:51)
[2022-05-16] MEDS: PIPERACILLIN SODIUM/TAZOBACTAM 3.375 GM in DEXTROSE 5% IN WATER 50 ML IV SCH ×2 (05:43→11:53)
[2022-05-16] MEDS: METOCLOPRAMIDE 10 MG/2 ML VIAL IV SCH ×2 (05:43→11:53)
--- NOTE | 2022-05-16 06:34 | XRay Report ---
CLINICAL INFORMATION: FOR F/U OF ILEUS COMPARISON: None. FINDINGS: Scattered air-fluid levels within normal caliber small large bowel appreciated. No evidence of small bowel obstruction pattern. There is no free air, soft tissue mass, organomegaly or pathologic calcification. IMPRESSION: Mild ileus Interpreted and Authenticated by: Laruo Yuan 05/16/22
[2022-05-16 06:49] LABS: Basophils # (Auto) 0.05 K/mcL (0.00-0.30); Basophils % (Auto) 0.9 % (0.0-2.0); Eosinophils # (Auto) 0.44 K/mcL (0.00-0.70); Eosinophils % (Auto) 8.3 % (0.0-7.0); Hematocrit 38.1 % (40.1-51.0); Hemoglobin 12.6 g/dL (13.7-17.5); Lymphocytes # (Auto) 0.73 K/mcL (1.50-4.80); Lymphocytes % (Auto) 13.8 % (15.5-49.0); Mean Cell Volume 89.9 fL (80.0-100.0); Mean Corpuscular HGB Conc 33.1 g/dL (31.0-36.0); Mean Platelet Volume 10.1 fL (7.4-10.4); Monocytes # (Auto) 0.35 K/mcL (0.10-0.90); Monocytes % (Auto) 6.6 % (1.0-12.0); Neutrophils % (Auto) 70.2 % (38.0-78.0); Platelet Count 153 K/mcL (140-440); RBC 4.24 M/mcL (4.63-6.08); Red Cell Distribution Width 12.3 % (11.5-14.5); WBC 5.3 K/mcL (4.5-11.0)
[2022-05-16 06:58] LABS: ALT/SGPT 7 U/L (<40); AST/SGOT 11 U/L (<40); Albumin 3.2 gm/dL (3.2-5.2); Albumin/Globulin Ratio 1.9 (1.0-2.3); Alkaline Phosphatase 87 U/L (39-117); Bilirubin,Direct < 0.2 mg/dL (0-0.3); Bilirubin,Total 0.7 mg/dL (0.1-1.0); Blood Urea Nitrogen 7 mg/dL (8-23); Calcium 7.9 mg/dL (8.6-10.4); Carbon Dioxide 25 mmol/L (22-30); Chloride 106 mmol/L (96-108); Globulin 1.7 gm/dL (2.2-3.7); Glomerular Filtration Rate 85; Glucose 84 mg/dL (70-105); Lactate Dehydrogenase 144 U/L (135-225); Phosphorous 2.6 mg/dL (2.5-4.5); Triglycerides 86 mg/dL (<150)
[2022-05-16] MEDS ORDERED: HYDROCHLOROTHIAZIDE 12.5 MG CAPSULE PO SCH (09:00)
[2022-05-16] MEDS ORDERED: TELMISARTAN 40 MG TABLET PO SCH (09:00)
--- NOTE | 2022-05-16 15:05 | Discharge Summary ---
Discharge Provider Provider IMPORTANT FOLLOW-UP INFORMATION FOR PCP: Patient information: Note initiated : 05/16/22 at 3:03 pm Service Date, if different from initiated Date: [] Patient: Ubaldo Oliveira 71 y/o M admitted on 05/14/22 for vomiting. Chief Complaint: [] Date of admission: 05/14/22 21:55 Discharge date: 05/16/22 Primary care physician: Verito Bullock Admitting clinician: Song Bullock Attending physician on admission: Song Bullock Consults: 05/15/22 07:08 Consult to Physician [CONS] Routine Comment: Consulting Provider: Song Bullock Reason For Exam: Physician to Consult Attending physician on discharge: Song Bullock Discharging clinician: Song Bullock COURSE Hospital Course Hospital course: 71-year-old male admitted with crampy abdominal pain nausea and vomiting. Evaluation revealed mild abdominal distention. CT suggests small bowel obstruction proximal to the ileocolic anastomosis. The anastomosis appeared to be widely patent. 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 He did well in the immediate postoperative period. Patient states that he has been eating regular diet and having regular bowel movements prior to the acute onset of pain nausea and vomiting. He was admitted and started on nasogastric decompression. During the night he started having a small amount of flatus. On yesterday a small bowel follow-through was performed which showed transit through the small bowel into the colon and 40minutes. He had multiple large volume bowel movement last night and today. He has tolerated full liquid diet and is asymptomatic. Patient is discharged in stable satisfactory condition. Discharge diagnosis: Partial small bowel obstruction Secondary discharge diagnosis: History of adenocarcinoma right colon Posttraumatic stress disorder Gastroesophageal reflux disease Hypertension Reason for admission: Partial small bowel obstruction Procedures: None Pertinent studies/significant findings: CT of abdomen and pelvis without contrast Single contrast small bowel follow-through Complications: None Time Spent with Patient Time attestation: Total time spent providing and/or coordinating discharge services: Time spent: Less than 30 minutes Physical Examination Vital Signs Vital signs: Temp Pulse Resp BP Pulse Ox O2 Del Method 98.2 F 56 L 20 166/89 98 05/16/22 11:39 05/16/22 11:39 05/16/22 11:39 05/16/22 11:39 05/16/22 11:39 05/16/22 11:39 General physical appearance General physical exam: well developed, well nourished, no distress and no pain Eyes Eye exam: PERRL and normal ocular movement ENT ENT exam: normal mucosa and decreased hearing Head Head exam IM: Present atraumatic, normal inspection and normocephalic Neck Neck exam: no masses, no bruits, trachea midline, no lymphadenopathy and no venous distension Cardiovascular Cardiovascular exam IM: Present normal rate and rhythm, RRR, +S1 and +S2; Absent JVD Respiratory Respiratory exam: normal expansion, normal respiratory effort and clear to auscu ltation Abdomen Abdomen: Present soft, non tender, bowel sounds (Normal bowel sounds) and surgical scars (Well-healed surgical scar); Absent distended Integumentary Integumentary: Present no rash, no growths and no abnormal pigmentation Neurologic Neurologic: Present normal coordination and normal sensation Musculoskeletal Musculoskeletal: Present normal gait and normal posture Psychiatric Psychiatric: Present oriented to time, oriented to person, oriented to place, speech is normal and memory intact Discharge Plan Patient/Caregiver Discharge Instructions Activity: increase activity as tolerated Diet: Regular Diet Prescriptions: Continued hydrochlorothiazide 25 mg tablet 12.5 mg PO QDAY ferrous sulfate 325 mg (65 mg iron) tablet 325 mg PO QDAY acetaminophen 325 mg capsule 650 mg PO TID PRN (Reason: Pain) aspirin 81 mg Capsule 81 mg PO QDAY omeprazole 20 mg Capsule,Delayed Release(Dr/Ec) 20 mg PO QDAY sertraline 25 mg Tablet 25 mg PO QHS oxycodone-acetaminophen [Endocet] 10-325 mg tablet 1 tab PO Q4H PRN (Reason: Pain) Qty: 20 0RF telmisartan 40 mg tablet 80 mg PO QDAY Prescription drug monitoring program results: PDMP not reviewed Follow Up Plan Follow up with: Verito Bullock ARNP [Primary Care Provider] - Patient Disposition: Home, Self-Care Plan of Treatment: Use MiraLAX twice daily Prognosis: Good Rehab Potential: Good I certify that the patient requires SNF services: No Overall status at discharge: patient is back to baseline Discharge Orders: Discharge Order (Routine); Ordered 05/16/22 Ordered By: Song Bullock Pending Pending Pending: Resuscitation Status Resuscitate (Full Code) Diet Full Liquid Diet Start FriMay 16 818 Hydrochlorothiazide (Hydrochlorothiazide 12.5 Mg Capsule) 12.5 mg PO DAILY [facility] Last Admin: 05/16/22 08:10 Dose: 12.5 mg Documented By: TYRELL Piperacillin Sod/Tazobactam (Sod 3.375 gm/ Dextrose) 50 mls @ 100 mls/hr IV Q6H [facility]; Protocol Last Infusion: 05/16/22 12:30 Dose: 0 mls/hr Documented By: Admin: 05/16/22 11:53 Dose: 100 mls/hr Documented By: Infusion: 05/16/22 06:31 Dose: 0 mls/hr Documented By: Admin: 05/16/22 05:43 Dose: 100 mls/hr Documented By: Infusion: 05/16/22 01:08 Dose: 0 mls/hr Documented By: Admin: 05/15/22 23:51 Dose: 100 mls/hr Documented By: Infusion: 05/15/22 18:53 Dose: 0 mls/hr Documented By: Admin: 05/15/22 18:14 Dose: 100 mls/hr Documented By: WILBUR Co-signed By: BLANCHE Infusion: 05/15/22 12:40 Dose: 0 mls/hr Documented By: WILBUR Co-signed By: BLANCHE Admin: 05/15/22 12:10 Dose: 100 mls/hr Documented By: WILBUR Co-signed By: BLANCHE Infusion: 05/15/22 09:24 Dose: 0 mls/hr Documented By: WILBUR Co-signed By: BLANCHE Admin: 05/15/22 08:54 Dose: 100 mls/hr Documented By: WILBUR Co-signed By: BLANCHE Infusion: 05/15/22 03:38 Dose: 0 mls/hr Documented By: Admin: 05/15/22 02:51 Dose: 100 mls/hr Documented By: CHARLY Sodium Chloride (Sodium Chloride 0.9%) 1,000 mls @ 150 mls/hr IV .Q6H40M [facility] Last Admin: 05/16/22 14:51 Dose: Not Given Documented By: Admin: 05/16/22 14:50 Dose: Not Given Documented By: Infusion: 05/16/22 09:54 Dose: 150 mls/hr Documented By: Admin: 05/16/22 02:27 Dose: 150 mls/hr Documented By: Infusion: 05/16/22 02:15 Dose: 150 mls/hr Documented By: Admin: 05/15/22 19:34 Dose: 150 mls/hr Documented By: Infusion: 05/15/22 19:14 Dose: 150 mls/hr Documented By: Admin: 05/15/22 12:33 Dose: 150 mls/hr Documented By: WILBUR Co-signed By: [email or web address] Metoclopramide HCl (Metoclopramide 10 Mg/2 Ml Vial) 10 mg IV Q6 [facility] Last Admin: 05/16/22 11:53 Dose: 10 mg Documented By: Admin: 05/16/22 05:43 Dose: 10 mg Documented By: Admin: 05/15/22 23:51 Dose: 10 mg Documented By: Admin: 05/15/22 18:18 Dose: 10 mg Documented By: CHARLY Morphine Sulfate (Morphine 2 Mg/Ml Vial) 2 mg IV Q2HP PRN; Protocol PRN Reason: Per Pain Protocol Last Admin: 05/15/22 12:34 Dose: 2 mg Documented By: [email or web address] Telmisartan (Telmisartan 40 Mg Tablet) 80 mg PO DAILY [facility] Last Admin: 05/16/22 08:04 Dose: Not Given Documented By: TYRELL Shift Summary 05/16/22 04:26 Shift Summary by Kathryn Marcano Primary Diagnosis: Partial SBO Registration Status: Date of Surgery (if applicable): N/A Pertinent Medical Dx/Issue(s): R hemicolectomy 04/10 (midline incision healed). HTN, GERD Med management (antibiotics, diuretics, BP): Zosyn Skin/Wound Care: Healed midline incision Vital Signs with Trends: SBP 150's to 170's - MD notified. O2, liter flow/saturations: RA Pain management (acute vs. chronic): no prns this shift Lab/Rad (abnormals, trends): K+ 3.4 - Multiple abdominal xrays and one small bowel follow through done today, see reports. Neuro/Mental Status: A/Ox4 Urinary Elimination Device: Urinal Urinary output greater than 30mL/hr? Yes. Date of last BM: 05/15 Lines/Tubes: LAC running NS @ 150 Activity: Independent Recommendations/questions for MD: Patient (and ) requested that they would like to resume the pt's home medications, specifically telmisartan and sertral ine. Discharge Plan (needs, disposition, etc): Will DC home when medically stable. Tolerating CLD, slept well this shift Initialized on 05/16/22 04:26 - END OF NOTE
[2022-05-16] MEDS ORDERED: SERTRALINE 50 MG TABLET PO SCH (21:00)
== END 2022-05-16 15:50 | disposition home or self-care (01) | DRG 390 ==
LOC: ED 19:17 → MEDSUR 21:55
PROVIDERS: ADMIT Family Medicine Adult Medicine; ATTEND Family Medicine Adult Medicine